=== PATIENT | male | born 1990 | race Asian ===

== ENCOUNTER 2017-07-21 16:17 | Emergency (ER) | payer OTHER ==
[~2017-07-21] VITALS: Ht 185.4 cm; Wt 73.0 kg
[2017-07-21 16:21] VITALS: TEMP 36.3; Ht 185.4 cm; Wt 73.0 kg
--- NOTE | 2017-07-21 16:36 | EMERGENCY ROOM VISIT NOTE ---
History First contact with patient: 16:24 Chief Complaint: RECTAL PAIN Stated Complaint: ANAL/SCROTUM PAIN History of Present Illness The patient is a 26 year old male who presents to the Emergency Room with complaints of anal pain. Started 2-3 days ago and progressively getting worse with associated lump behind his anus which has been getting larger. Used prep H but didn't help and getting worse. Last BM 2-3 days ago. He does not have any pain on defecation. He was recently sitting for a long period of 14 hours on a long haul plane flight. He is recovering from a Upper Respiratory Tract infection and has an ongoing dry cough which causes him intense 10/10 pain on the anal lump when coughing. He denies any anal sex or foreign object in anus. 3 months ago had similar but much less severe pain, prep H helped. Review of Systems Constitutional: No fever, No chills Eyes: No worsening of vision ENT: No hearing loss Respiratory: No cough, No sputum, No shortness of breath Cardiovascular: No chest pain Abdomen: No pain, No nausea, No vomiting, No diarrhea, No constipation, No GI bleeding Musculoskeletal: No joint pain, No muscle pain Genitourinary - Male: No hematuria, No dysuria, No urinary frequency Integumentary: No rash, No itch Past Medical/Surgical History None Social History Smoking Status: Current Every Day Smoker (pack/day) Smokeless Tobacco Use: No Alcohol Use: occasionally (1/year) Drug Use: none Housing Status: lives with roommate Occupation Status: [employer] student Current/Historical Medications Scheduled Cephalexin Monohydrate (Keflex), 500 MG PO QID Sulfa/Trimethoprim (Bactrim Ds 800MG/160MG), 1 TAB PO BID Scheduled PRN Oxycodone/Acetaminophen 5MG/325MG (Percocet 5MG/325MG), 1 TABLETS PO Q4H PRN for Pain Physical Exam Vital Signs Date Time Temp Pulse Resp B/P (MAP) Pulse Ox O2 Delivery O2 Flow Rate FiO2 07/21/17 16:21 36.3 122 16 122/86 97 Room Air Physical Exam General Appearance: WD/WN, + moderate distress (from pain) Respiratory/Chest: chest non-tender, lungs clear, normal breath sounds, no respiratory distress, no accessory muscle use Cardiovascular: regular rate, rhythm, no murmur, normal peripheral pulses Abdomen / GI: normal bowel sounds, non tender, soft, + pertinent finding ( 5x2 cm skin colored tender lump @ 6 'o'clock to anus) Extremities: no calf tenderness, normal capillary refill, no pedal edema Neurologic/Psych: alert, oriented x 3 Medical Decision & Procedures Medications Administered Medications (Trade) Dose Ordered Sig/Rohith Route Start Time Stop Time Status Last Admin Dose Admin Hydrocortisone Acetate (Anusol Hc Supp) 25 mg NOW STAT ND 07/21/17 16:40 07/21/17 16:42 DC 07/21/17 16:54 25 MG Lidocaine/ Epinephrine (Xylocaine/Epine 1% Inj) 20 ml NOW STAT INFIL 07/21/17 16:40 07/21/17 16:42 DC 07/21/17 16:54 20 ML Trimethoprim/ Sulfamethoxazole (Septra Ds 800/ 160MG Tab) 1 tab NOW STAT PO 07/21/17 17:08 07/21/17 17:11 DC 07/21/17 17:44 1 TAB Cephalexin Monohydrate (Keflex 500MG Home Pack) 1 homepack NOW ONCE PO 07/21/17 17:15 07/21/17 17:16 DC 07/21/17 17:45 1 HOMEPACK Trimethoprim/ Sulfamethoxazole (Sulfameth/ Trimeth Ds 800/ 160MG Home Pack) 1 homepack UD ONCE PO 07/21/17 17:15 07/21/17 17:16 DC 07/21/17 17:45 1 HOMEPACK Cephalexin Monohydrate (Keflex Cap) 500 mg NOW ONCE PO 07/21/17 17:15 07/21/17 17:16 DC 07/21/17 17:44 500 MG Ibuprofen (Motrin Tab) 600 mg NOW STAT PO 07/21/17 17:08 07/21/17 17:11 DC 07/21/17 17:44 600 MG Oxycodone/ Acetaminophen (Percocet 5-325mg Tab) 2 tab NOW ONCE PO 07/21/17 17:15 07/21/17 17:16 DC 07/21/17 17:44 2 TAB Oxycodone/ Acetaminophen (Percocet 5/ 325MG Home Pack) 1 homepack UD ONCE PO 07/21/17 17:15 07/21/17 17:16 DC 07/21/17 17:44 1 HOMEPACK ED Course 16:25 Complete history and physical performed by myself 16:35 Patient was discussed with Dr Bustillo who performed history and examination with myself again. Please see Dr Bustillo's note for incision and drainage procedure. 17:20 Patient was reassessed. Still having some pain but much improved. He was able to temporarily sit on that area. Medical Decision Triage Nursing notes reviewed. Additional history obtained from patient The patient's history was concerning for anal pain. Differential diagnosis: Etiologies such as hemorrhoids, anal fissures, fistulas pilonidal abscess, malignancy, genital warts as well as others were entertained. Physical examination findings: As above. Lump consistent with hemorrhoid vs. pilonidal cyst. Initial vital signs HR 122 however on auscultation his HR was 70-80 bpm ER treatment provided: Incision and drainage, acetaminophen, ibuprofen, Bactrim, Keflex On reassessment the patient felt better. By the evaluation outlined above emergent etiologies such as hemorrhoids, anal fissures, fistulas, malignancy, genital warts as well as others were deemed relatively unlikely. The patient was informed about the findings as listed above. All questions were answered and he pleased with the treatment. Return instructions were outlined and the patient was discharged in stable condition. Outpatient prescription management: Bactrim DS 800/160 BID PO 9 days (total 10 day course) Keflex 500mg QID PO 9 days (total 10 day course) Percocet 5/325 PO Q4H PRN for pain 14 tabs Referral: The patient was referred to [facility] [place] Surgery for pilonidal abscess follow up He will also return to the ER in 48 hours for a incision recheck [place] Drug Monitoring Program Search Results: patient reviewed within database Drug Monitoring Findings: No patient found with name and Medication Reconcilliation Current Medication List: was personally reviewed by me Impression Primary Impression: Pilonidal abscess Departure Information Dispostion Home / Self-Care Condition GOOD Prescriptions Cephalexin Monohydrate (KEFLEX) 500 Mg Cap 500 MG PO QID for 9 Days, #36 CAP Prov: Darion Burotn MD 07/21/17 Sulfa/Trimethoprim (Bactrim Ds 800MG/160MG) Tab 1 TAB PO BID for 9 Days, #6 TAB Prov: Darion Burton MD 07/21/17 Oxycodone/Acetaminophen 5MG/325MG (PERCOCET 5MG/325MG) Tab 1 TABLETS PO Q4H Y for Pain, #14 TAB PAIN Prov: Darion Burton MD 07/21/17 Referrals No Doctor, Assigned (PCP) [facility] [place]-Department of Surgery Follow up to initial encounter of pilonidal abscess Patient Instructions My [facility] Additional Instructions What is pilonidal cyst? A pilonidal cyst is a fluid-filled sac that forms just above the crease where the buttocks come together. This cyst can become red, inflamed, and infected. It can also cause pain and make it uncomfortable to sit or lie back. It appeared on examination today that it is infected and a sample was sent off to the lab for culture. What are the symptoms of pilonidal cyst? If the cyst is not infected, it might not cause symptoms. But if the cyst is infected, it can cause pain, redness, and swelling in the area above the crease where the buttocks come together. In some cases, the cyst might burst and drain fluid, blood, or pus (a milky yellow or green fluid). How is a pilonidal cyst treated? Treatment for a pilonidal cyst usually involves either draining the cyst or removing it with surgery. In the ER the cyst was incised and drained but is likely to reoccur without surgery therefore a referral was sent to [facility] [place] Surgery for further treatment. The incision should continue to drain. Removing a cyst involves surgery, so it is done in an operating room at the hospital. Right before the surgery, people having the surgery either get a shot to numb the area, or a shot to numb the area plus some medicine to make them drowsy. People having the surgery can usually go home the same day. In order to prevent this from reoccurring you should try not to sit down for excessive periods. Please take the antibiotics as prescribed Take Ibuprofen or Tylenol (age and/or weight specific) as needed for pain, discomfort, and fevers. The prescription pain relief given contains acetaminophen so please be careful not to have more than 3250mg of acetaminophen /day. Drink more clear liquids for the next 3 to 4 days. Do not drink alcohol or drive while taking prescription pain medication. If you have an increasing pain, discomfort, fevers, or difficulty swallowing, difficulty breathing, chest pain, recurrent vomiting or diarrhea, come back to the Emergency Department. Please return to the ER in 48 hours for a recheck of your incision Resident Tracking Resident Involvement: Resident Care Provided Care Provided: Adult ED
[2017-07-21] MEDS ORDERED: LIDOCAINE/EPINEPHRINE 1% 20 ML VIAL INFIL STA (16:40)
[2017-07-21] MEDS ORDERED: HYDROCORTISONE ACETATE 25 MG SUPP PR STA (16:40)
--- NOTE | 2017-07-21 17:07 | EMERGENCY ROOM VISIT NOTE ---
ED Visit Note First contact with patient: 16:24 Resident Physician Supervision Note: I was present with Dr. Burton during the history and exam. I discussed the case with the resident and agree with the findings and plan as documented in the note. Documented By: Artem Bustillo Incision & Drainage Indication: Abscess. Location: buttock cleft Verbal consent was obtained after the risks and benefits were explained, including but not limited to bleeding, scarring, infection, pain, and bone/joint /nerve damage. At this time, the risks of the procedure are less than the risks of NOT performing the procedure. A time out was taken and the correct patient and site identified. The skin was prepped with betadine and a sterile field set. The wound was anesthetized with 6 ml of 1% lidocaine with epinephrine. The abscess cavity was entered with a number 11 blade and purulent material expressed. Copious irrigation was performed using NSS. The wound was explored for foreign bodies and none found. Debridement was not performed. Packing placed and a sterile dressing applied. Detailed wound care instructions and signs and symptoms of worsening infection reviewed with the patient. No complications and the patient tolerated the procedure well. Current/Historical Medications Scheduled Cephalexin Monohydrate (Keflex), 500 MG PO QID Sulfa/Trimethoprim (Bactrim Ds 800MG/160MG), 1 TAB PO BID Scheduled PRN Oxycodone/Acetaminophen 5MG/325MG (Percocet 5MG/325MG), 1 TABLETS PO Q4H PRN for Pain Allergies Coded Allergies: No Known Allergies (Unverified , 07/21/17) Vital Signs Date Time Temp Pulse Resp B/P (MAP) Pulse Ox O2 Delivery O2 Flow Rate FiO2 07/21/17 16:21 36.3 122 16 122/86 97 Room Air Medications Administered Medications (Trade) Dose Ordered Sig/Rohith Route Start Time Stop Time Status Last Admin Dose Admin Hydrocortisone Acetate (Anusol Hc Supp) 25 mg NOW STAT PA 07/21/17 16:40 07/21/17 16:42 DC 07/21/17 16:54 25 MG Lidocaine/ Epinephrine (Xylocaine/Epine 1% Inj) 20 ml NOW STAT INFIL 07/21/17 16:40 07/21/17 16:42 DC 07/21/17 16:54 20 ML Departure Information Prescriptions Cephalexin Monohydrate (KEFLEX) 500 Mg Cap 500 MG PO QID for 9 Days, #36 CAP Prov: Darion Burton MD 07/21/17 Sulfa/Trimethoprim (Bactrim Ds 800MG/160MG) Tab 1 TAB PO BID for 9 Days, #6 TAB Prov: Darion Burton MD 07/21/17 Oxycodone/Acetaminophen 5MG/325MG (PERCOCET 5MG/325MG) Tab 1 TABLETS PO Q4H Y for Pain, #14 TAB PAIN Prov: Darion Burton MD 07/21/17 Referrals No Doctor, Assigned (PCP) Patient Instructions [facility]
[2017-07-21] MEDS ORDERED: IBUPROFEN 600 MG TAB PO STA (17:08)
[2017-07-21] MEDS ORDERED: SULFAMETHOXAZOLE/TRIMETHOPRIM DS 800/160MG TAB PO STA (17:08)
[2017-07-21] MEDS ORDERED: OXYC-57 PO (17:11)
[2017-07-21] MEDS ORDERED: SULF800T23 PO (17:14)
[2017-07-21] MEDS ORDERED: CEPH500C2 PO (17:14)
[2017-07-21] MEDS ORDERED: PERCOCET HOME PACK PO ONE (17:15)
[2017-07-21] MEDS ORDERED: CEPHALEXIN 500MG HOME PACK 1 EA BTL PO ONE (17:15)
[2017-07-21] MEDS ORDERED: SEPTRA DS HOME PACK 1 EA VIAL PO ONE (17:15)
[2017-07-21] MEDS ORDERED: OXYCODONE/ACETAMINOPHEN 5-325 TAB PO ONE (17:15)
[2017-07-21] MEDS ORDERED: CEPHALEXIN MONOHYDRATE 250 MG CAP PO ONE (17:15)
[2017-07-21 17:57] VITALS: BP 118/76; PULSE 96; O2SAT 98
== END 2017-07-21 17:50 | disposition home or self-care (01) ==
LOC: C.EDB 16:19 → C.EDC 17:50
DX: L05.01 Pilonidal cyst with abscess (principal); F17.210 Nicotine dependence, cigarettes, uncomplicated